=== PATIENT | female | born 1970 | race African-American/Black ===

== ENCOUNTER 2021-02-15 19:41 | Emergency (ER) | payer SELFPAY ==
[~2021-02-15] VITALS: Ht 175.3 cm; Wt 80.0 kg
[2021-02-15 21:02] VITALS: BP 112/83
--- NOTE | 2021-02-15 21:18 | PHYS DOC ---
Past Medical History Past Medical History: No Pertinent History Past Surgical History: Tubal ligation Additional Past Surgical Histo: hernia surg at Smoking Status: Current Every Day Smoker Alcohol Use: Rarely Drug Use: Marijuana General Adult EDM: Chief Complaint: MULTIPLE COMPLAINTS HPI: HPI: 50-year-old female presents with a chief complaint of headache muscle aches cough with shortness of breath and lost of taste. Patient states symptoms been ongoing for the last several days. Patient has recent sick Covid positive contact. Patient was advised that she should get checked out. Patient presents requesting Covid test. On exam patient is alert and oriented x4 she is in no respiratory distress her oxygen saturation is 100% on room air Review of Systems: Review of Systems: Constitutional: Denies fever or chills. [] Eyes: Denies change in visual acuity. [] HENT: Denies nasal congestion or sore throat. [] Respiratory: Positive cough Positive shortness of breath. [] Cardiovascular: Denies chest pain or edema. [] GI: Denies abdominal pain, nausea, vomiting, bloody stools or diarrhea. [] : Denies dysuria. [] Musculoskeletal: Denies back pain or joint pain. [] Integument: Denies rash. [] Neurologic: Positive headache, focal weakness or sensory changes. [Positive myalgia] Endocrine: Denies polyuria or polydipsia. [] Lymphatic: Denies swollen glands. [] Psychiatric: Denies depression or anxiety. [] Heart Score: C/O Chest Pain: N/A Risk Factors: Risk Factors: DM, Current or recent (<one month) smoker, HTN, HLP, family history of CAD, obesity. Risk Scores: Score 0 - 3: 2.5% MACE over next 6 weeks - Discharge Home Score 4 - 6: 20.3% MACE over next 6 weeks - Admit for Clinical Observation Score 7 - 10: 72.7% MACE over next 6 weeks - Early Invasive Strategies Allergies: Allergies: Allergies Coded Allergies Type Severity Reaction Last Updated Verified No Known Drug Allergies 03/07/15 No Physical Exam: PE: General: alert, no acute distress. Skin: warm, dry and intact, no erythema, no rash. HENT: bilateral external ears normal, oropharynx moist, nose normal. Head:: Normocephalic, atraumatic. Neck: Trachea midline. Eyes: EOMI, Normal conjunctiva, No drainage CARDIOVASCULAR: Regular rate and rhythm RESPIRATORY: No respiratory distress Back: Full range of motion. MUSCULOSKELETAL: Full range of motion of bilateral upper and lower extremities. GASTROINTESTINAL: Abdomen soft without rebound or guarding. NEUROLOGICAL: Alert and noted to person, place and time. No neurological deficits observed Psychiatric: Cooperative. Normal judgment Current Patient Data: Vital Signs: Vital Signs Date Time Temp Pulse Resp B/P (MAP) Pulse Ox O2 Delivery O2 Flow Rate FiO2 02/15/21 21:02 99.9 103 18 112/83 (93) 98 99.9 02/15/21 19:46 Room Air EKG: EKG: [] Radiology/Procedures: Radiology/Procedures: [] Course & Med Decision Making: Course & Med Decision Making Pertinent Labs and Imaging studies reviewed. (See chart for details) [] Dragon Disclaimer: Dragon Disclaimer: This electronic medical record was generated, in whole or in part, using a voice recognition dictation system. Departure Departure Impression: Primary Impression: Person under investigation for COVID-19 Additional Impression: COVID-19 Disposition: 01 HOME / SELF CARE / HOMELESS Condition: STABLE Referrals: NO PCP (PCP) Patient Instructions: Viral Syndrome Additional Instructions: You have been tested for or diagnosed with COVID-19. It is an infection caused by a new type of coronavirus. COVID-19 will cause cold-like or mild flu symptoms in most. It can cause more severe symptoms like problems breathing in some. There is no treatment for COVID-19. The body will clear the infection over time. Self-care will help to ease discomfort. Steps to Take: Self-Care Rest as needed. Healthy habits may help you feel better. Steps include: Choose healthy foods including fruits and vegetables. Drink water throughout the day. Get plenty of sleep each night. If you smoke, try to quit. It may ease breathing. Avoid alcohol. Keep Others Healthy The virus can spread to others. Droplets are released every time you sneeze or cough. The droplets can get into the mouth, nose, or eyes of people near you and lead to infection. To lower the chances of spreading COVID-19 to others: Stay at home until your doctor has said it is safe to leave. If you tested positive this will mean staying isolated until both of the following are true: At least 7 days have passed since the start of illness. You are free of fever for at least 72 hours without the use of medicine. During this time: - Avoid public areas, events, or transportation. Do not return to work or school until your doctor has said it is safe to do so. - Call ahead if you need to go to a medical center. Let them know you may have COVID-19. It will help them guide you where to go. They may also ask you to wear a facemask when you come to the office. - If you call for emergency medical services, let them know you may have COVID- 19. While at home: - Try to avoid close contact with others. Stay about 6 feet away. - If possible, spend most of your time in a separate room from others. - Use a face mask if you will be in close contact with others such as sharing a room or vehicle. - Have someone wipe down common surfaces in the home. Use household print press operator every day on areas like doorknobs, counters, or sinks. - Cough or sneeze into a tissue. Throw the tissue away right after use. If a tissue is not available, cough or sneeze into your elbow. - Wash your hands often. Wash them after sneezing or coughing. Use soap and water and wash for at least 20 seconds. Alcohol based hand suede cleaner can be used if soap and water is not available. - Do not prepare food for others. Avoid sharing personal items like forks, spoons, or toothbrushes. - Avoid close contact with pets while you are sick. There is no evidence of the virus passing to pets. This is a safety step until more is known about this virus. Isolation can be frustrating. Social interaction can help. Keep in touch with friends and family through phone and tech options. You can still interact with others in your home, just keep a safe distance of about 6 feet. Follow-up: Your doctors office will check in with you to see if there are any changes in your health. You may be asked to keep track of symptoms to share with them. They will also let you know when you are clear to be in public again. Problems to Look Out For: Contact your doctor if your recovery is not going as you expect. Get emergency care if you have problems such as: - Trouble breathing - Nonstop chest pain or pressure - Changes in awareness, confusion, or problems waking - Lips or face have bluish color - Worsening of symptoms If you think you have an emergency, call for emergency medical services right away. As taken from [facility] ROBERT NOLAN I DO Feb 15, 2021 21:18
== END 2021-02-15 22:00 | disposition home or self-care (01) ==
LOC: ER 19:41
DX: U07.1 COVID-19 (principal); F17.200 Nicotine dependence, unspecified, uncomplicated
CPT/HCPCS: 87426; 99283